=== PATIENT | male | born 1995 | race African-American/Black ===

== ENCOUNTER 2016-06-26 | Emergency (ER) | payer BC, OTHER ==
[~2016-06-26] VITALS: Ht 172.7 cm; Wt 80.0 kg
[~2016-06-26] MED LIST: ALBUAER19 INH; FLUT44AE INH
[2016-06-26 00:03] VITALS: TEMP 37; Ht 172.7 cm; Wt 80.0 kg
--- NOTE | 2016-06-26 00:14 | EMERGENCY ROOM VISIT NOTE ---
History Report prepared by Lexis: Wayne Mosley Under the Supervision of: Dr. Tonny Ross M.D. First contact with patient: 00:02 Chief Complaint: RESPIRATORY PROBLEMS Stated Complaint: RESPIRATORY DIFFICULTY History of Present Illness The patient is a 21 year old male who presents to the Emergency Room via EMS with complaints of persistent shortness of breath starting about 2 hours ago. He also complains of cough. He states that he had just finished drinking apple juice when he started having his symptoms. He reports some improvement after receiving a breathing treatment and using his inhaler. He has a history of asthma. He traveled on [place] 2 days ago. He denies smoking any recreational drugs. The patient denies fevers, chills, nausea, vomiting, lower extremity pain /swelling, or any other complaints. He denies any family history of blood clots. Source of History: patient Onset: about 2 hours ago Position: other (global) Quality: other (shortness of breath) Timing: other (persistent) Modifying Factors (Relieving): other (breathing treatment and inhaler) Associated Symptoms: + cough, No chills, No fevers, No nausea, No vomiting Review of Systems See HPI for pertinent positives & negatives. A total of 10 systems reviewed and were otherwise negative. Past Medical & Surgical Medical Problems: (1) Asthma (2) Laceration (3) Pneumonia (4) Work related injury Family History Diabetes mellitus FHx: cancer FHx: heart disease Hypertension Social History Smoking Status: Never Smoker Alcohol Use: occasionally Marital Status: single Occupation Status: employed Current/Historical Medications Scheduled Fluticasone Propionate Hfa (Flovent Hfa 44MCG Inhaler), 1 PUFF INH QAM Prednisone (Prednisone), 50 MG PO DAILY Scheduled PRN Albuterol (Ventolin Hfa), 2 PUFFS INH Q4H PRN for Wheezing Albuterol Inhaler (Ventolin Inhaler), 2 PUFFS INH Q4H PRN for Wheezing/Cough Allergies Coded Allergies: No Known Allergies (Unverified , 06/26/16) Physical Exam Vital Signs Date Time Temp Pulse Resp B/P Pulse Ox O2 Delivery O2 Flow Rate FiO2 06/26/16 01:29 110 20 149/73 99 06/26/16 00:09 99 06/26/16 00:03 37.0 105 20 155/77 98 Room Air 06/26/16 00:03 97 Room Air Physical Exam GENERAL: Patient is well appearing and in minimal distress. HEENT: No acute trauma, normocephalic atraumatic, injected conjunctiva bilaterally, mucous membranes moist, no nasal congestion, no scleral icterus. NECK: No stridor, no adenopathy, no meningismus, trachea is midline. LUNGS: Mild wheezing the right lower lobe. HEART: Regular rate and rhythm. No murmurs, rubs, gallops appreciated. ABDOMEN: Soft, nontender, bowel sounds positive, no masses appreciated, no peritonitis. BACK: No midline tenderness, no CVA tenderness EXTREMITIES: Normal motion all extremities, no cyanosis, no edema. NEUROLOGIC: Alert and oriented, no acute motor or sensory deficits, no focal weakness, cranial nerves grossly intact. SKIN: No rash, no jaundice, no diaphoresis. Medical Decision & Procedures ER Provider Diagnostic Interpretation: X ray results are stated below per my interpretation: Chest: 1 view: No infiltrate, no effusion, normal cardiac border. Laboratory Results 06/26/16 00:15 06/26/16 00:15 Test 06/26/16 00:15 Red Blood Count 5.41 M/uL (4.7-6.1) Mean Corpuscular Volume 82.4 fL (80-100) Mean Corpuscular Hemoglobin 29.8 pg (25-34) Mean Corpuscular Hemoglobin Concent 36.1 g/dl (32-36) RDW Standard Deviation 36.4 fL (36.4-46.3) RDW Coefficient of Variation 12.2 % (11.5-14.5) Mean Platelet Volume 9.9 fL (7.4-10.4) D-Dimer < 190 ug/L FEU (0-500) Anion Gap 8.0 mmol/L (3-11) Est Creatinine Clear Calc Drug Dose 101.9 ml/min Estimated GFR () 109.9 Estimated GFR (Non- 94.8 BUN/Creatinine Ratio 9.5 (10-20) Calcium Level 8.9 mg/dl (8.5-10.1) Troponin I < 0.015 ng/ml (0-0.045) Laboratory results as reviewed by me. Medications Administered Medications (Trade) Dose Ordered Sig/Abby Route Start Time Stop Time Status Last Admin Dose Admin Dexamethasone Sodium Phosphate (Decadron Inj) 10 mg NOW ONCE IV 06/26/16 00:15 06/26/16 00:16 DC 06/26/16 00:25 10 MG Albuterol/ Ipratropium (Duoneb) 12 ml ONE ONCE INH 06/26/16 00:15 06/26/16 00:16 DC 06/26/16 00:30 12 ML ECG Indication: SOB/dyspnea Rate (beats per minute): 94 Rhythm: normal sinus Findings: no acute ischemic change, no ectopy ED Course 0002: The patient was evaluated in room B06. A complete history and physical exam was performed. 0015: DuoNeb 12 ml INH, Decadron Inj 10 mg IV 0125: Reevaluated the patient. Discussed results and discharge instructions: He verbalized understanding and agreement. The patient is ready for discharge. Medical Decision Differential: Infectious, Reactive Airway Disease, Pneumonia, Pneumothorax, COPD , CHF, ACS, Pulmonary Embolism, MSK, GI, Dissection, amongst other etiologies entertained. 21 yr old male with long history of asthma arrives already starting to feel better after EMS neb for SHOB. He has mild wheezing RLL but now infiltrate on CXR. Labs unremarkable. EKG normal. Breathing improved after neb here as well. Will do short course prednisone. He denies smoking nor any irritants. Denies runny nose or flu like symptoms. Low risk for PE and with negative dimer I feel CT PE study not indicated. Stable and breathing comfortably. No other symptoms and exam is normal. Impression Primary Impression: Acute asthma exacerbation Scribe Attestation The scribe's documentation has been prepared under my direction and personally reviewed by me in its entirety. I confirm that the note above accurately reflects all work, treatment, procedures, and medical decision making performed by me. Departure Information Dispostion Home / Self-Care Prescriptions Albuterol (Ventolin Hfa) 60 Puffs/5400 Mcg Aers 2 PUFFS INH Q4H Y for Wheezing, #1 INHALER Prov: Tonny Ross M.D. 06/26/16 Prednisone (Prednisone) 50 Mg Tab 50 MG PO DAILY for 4 Days, #4 TAB Prov: Tonny Ross M.D. 06/26/16 Referrals Primary Care Provider Forms HOME CARE DOCUMENTATION FORM, IMPORTANT VISIT INFORMATION, WORK / SCHOOL INSTRUCTIONS Patient Instructions A Signature Page, My [facility]
[2016-06-26] MEDS ORDERED: ALBUT/IPRATROP 3MG/0.5MG NEB 3 ML VIAL INH ONE (00:15)
[2016-06-26] MEDS ORDERED: DEXAMETHASONE SOD INJ 10 MG/ML VIAL IV ONE (00:15)
[2016-06-26 00:30] LABS: HEMATOCRIT 44.6 % (42-52); MEAN CELL VOLUME 82.4 fL (80-100); MEAN CORPUSCULAR HEMOGLOBIN 29.8 pg (25-34); MEAN CORPUSCULAR HGB CONC 36.1 g/dl (32-36); MEAN PLATELET VOLUME 9.9 fL (7.4-10.4); PLATELET COUNT 227 K/uL (130-400); RED BLOOD COUNT 5.41 M/uL (4.7-6.1)
[2016-06-26 00:52] LABS: BLOOD UREA NITROGEN 10 mg/dl (7-18); BUN/CREATININE RATIO 9.5 (10-20); CALCIUM 8.9 mg/dl (8.5-10.1); CARBON DIOXIDE 30 mmol/L (21-32); CHLORIDE 107 mmol/L (98-107); GLUCOSE 107 mg/dl (70-99); POTASSIUM 3.5 mmol/L (3.5-5.1); SODIUM 145 mmol/L (136-145)
[2016-06-26] MEDS ORDERED: PRED50TA PO (00:58)
[2016-06-26] MEDS ORDERED: PRVHFAIN INH (00:58)
[2016-06-26 01:29] VITALS: BP 149/73; PULSE 110; O2SAT 99
--- NOTE | 2016-06-26 07:12 | DIAGNOSTIC IMAGING REPORT ---
SINGLE VIEW CHEST CLINICAL HISTORY: Wheezing and dyspnea. FINDINGS: An AP, portable, upright chest radiograph is obtained. No prior studies are available for comparison at the time of dictation. The examination is degraded by portable technique and patient rotation. The cardiomediastinal silhouette is unremarkable. There is mild elevation of the left hemidiaphragm. No airspace consolidation is seen typical for pneumonia and there is no large pleural effusion. No pneumothorax is seen. The bony thorax is grossly intact. IMPRESSION: No acute cardiopulmonary abnormality. Electronically signed by: Aaron House M.D. 06/26/2016 7:10 AM Dictated Date/Time: 06/26/2016 7:10 AM
== END 2016-06-26 01:31 | disposition home or self-care (01) ==
LOC: EDBD → C.EDB 00:01
DX: J45.901 Unspecified asthma with (acute) exacerbation (principal)